=== PATIENT | female | born 1995 | race Caucasian/White ===

== ENCOUNTER 2019-11-19 12:13 | Observation (INO) | payer MEDICAID, OTHER ==
[~2019-11-19] VITALS: Ht 160 cm; Wt 65.0 kg
[~2019-11-19 12:13] MED LIST: CLON-568 PO; CLON0.1T2 PO; DICY10CA18 PO; ESCI20TA PO; NOR5T PO; ONDA4TAB6 PO; PANT40TA4 PO
[2019-11-19 13:32] LABS: BASOPHILS % (AUTO) 0.3 % (0-1); EOSINOPHILS % (AUTO) 0 % (0-6); HEMATOCRIT 44.6 % (35.0-45.0); HEMOGLOBIN 15.6 g/dl (12.0-16.0); LYMPHOCYTES # (AUTO) 1.6 X10'3 (1.1-4.8); LYMPHOCYTES % (AUTO) 13.1 % (21-51); MEAN CORPUSCULAR HGB CONC 34.9 g/dL (33.0-36.5); MEAN PLATELET VOLUME 7.6 FL (7.4-10.4); MONOCYTES # (AUTO) 0.6 X10'3 (0-0.9); MONOCYTES % (AUTO) 5.1 % (2-12); NEUTROPHILS # (AUTO) 10.1 X10'3 (1.8-7.7); NEUTROPHILS % (AUTO) 81.5 % (42-75); PLATELET COUNT 415 X10'3 (140-440); RED BLOOD COUNT 5.02 X10'6 (4.20-5.60); RED CELL DISTRIBUTION WIDTH 14.3 % (11.5-14.5); WHITE BLOOD COUNT 12.4 X10'3 (4.5-11.0)
--- NOTE | 2019-11-19 13:37 | NUR ---
DR. AVITIA IN ROOM AND AWARE OF BP OF 181/118
[2019-11-19] MEDS ORDERED: LORazepam 2 mg/ml vial IV ONE (13:40)
[2019-11-19] MEDS ORDERED: famotidine/PF 10 mg/ml inj IV ONE (13:40)
[2019-11-19] MEDS ORDERED: haloperidol lactate 5mg/ml inj IM ONE ×2 (13:40→14:30)
[2019-11-19] MEDS ORDERED: pantoprazole 40 MG vial IV ONE (13:40)
[2019-11-19] MEDS ORDERED: metoclopramide 5 mg/ml inj IV ONE (13:40)
[2019-11-19] MEDS ORDERED: ringers solution, lactated 1000ml IV soln IV ONE (13:40)
--- NOTE | 2019-11-19 13:40 | NUR ---
PT. INDUCING VOMITING BY PLACING FINGERS IN BACK OF THROAT
[2019-11-19 13:51] LABS: ALANINE AMINOTRANSFERASE 27 U/L (12-78); ALBUMIN 5.2 G/DL (3.4-5.0); ALBUMIN/GLOBULIN RATIO 1.2 (1.1-1.5); ALKALINE PHOSPHATASE 105 IU/L (46-116); ANION GAP 12 (8-16); ASPARTATE AMINO TRANSFERASE 13 U/L (10-37); BILIRUBIN,TOTAL 0.6 MG/DL (0.1-1.0); BLOOD UREA NITROGEN 10 MG/DL (7-18); BUN/CREATININE RATIO 10.1 (6.6-38.0); CALCIUM 9.9 MG/DL (8.5-10.1); CHLORIDE 97 MMOL/L (99-107); CREATININE 0.99 MG/DL (0.40-0.90); GLUCOSE 143 MG/DL (70-104); LIPASE 85 U/L (73-393); POTASSIUM 3.7 MMOL/L (3.5-5.1); SODIUM 136 MMOL/L (135-145); TOTAL CARBON DIOXIDE 27.5 MMOL/L (24-32); TOTAL PROTEIN 9.5 G/DL (6.4-8.2); eGFR 68 ML/MIN
[2019-11-19 13:58] LABS: CLARITY,URINE CLOUDY (Clear); COLOR,URINE YELLOW (Yellow); GLUCOSE, URINE NEGATIVE (Neg); KETONES,URINE 40 mg/dl (Neg); LEUKOCYTE ESTERASE ,URINE NEGATIVE (Neg); NITRITES, URINE NEGATIVE (Neg); OCCULT BLOOD,URINE NEGATIVE (Neg); PH,URINE 7.5 (4.8-8.0); PROTEIN,URINE 30 mg/dl (Neg); UROBILINOGEN,URINE 0.2 E.U/dL (0.2-1.0)
[2019-11-19 14:00] LABS: UA COLLECTION TYPE CLN CATCH MIDSTREAM; URINE HCG NEGATIVE (NEG)
[2019-11-19 14:07] LABS: BACTERIA,URINE 4+ /HPF (Neg); MUCUS STRANDS NONE SEEN /LPF (Neg); RBC,URINE NONE SEEN /HPF (0-2); SQUAMOUS EPITHELIAL CELL,UR MODERATE /LPF (FEW)
[2019-11-19] MEDS ORDERED: proCHLORperazine 10 MG/2 ml inj IV ONE (14:30)
[2019-11-19] MEDS ORDERED: ondansetron/PF 4mg/2ml inj IV PRN (15:05)
[2019-11-19] MEDS ORDERED: magnesium hydroxide 30ml (MOM) UD suspension PO PRN (15:05)
[2019-11-19] MEDS ORDERED: metoclopramide 5 mg/ml inj IV PRN (15:05)
[2019-11-19] MEDS ORDERED: mag hydrox/Alum hydrox/simeth 30ml oral suspension PO PRN (15:05)
[2019-11-19] MEDS ORDERED: acetaminophen 325mg tablet PO PRN (15:05)
--- NOTE | 2019-11-19 15:06 | NUR ---
iv started and all meds given. no c/o pain. no nausea
[2019-11-19 15:57] LABS: URINE AMPHETAMINE SCREEN NEGATIVE (Neg); URINE BARBITUATE SCREEN NEGATIVE (Neg); URINE BENZODIAZEPINES SCREEN POSITIVE (Neg); URINE CANNABINOID SCREEN POSITIVE (Neg); URINE COCAINE SCREEN NEGATIVE (Neg); URINE METHADONE SCREEN NEGATIVE (Neg); URINE OPIATE SCREEN NEGATIVE (Neg); URINE PHENCYCLIDINE SCREEN NEGATIVE (Neg)
[2019-11-19] MEDS: normal saline 1000ml 1,000 ML IV SCH (16:16)
--- NOTE | 2019-11-19 16:38 | NUR ---
RECEIVED REPORT FROM IVELISSE HALL IN ER
--- NOTE | 2019-11-19 17:00 | NUR ---
PT ARRIVED IN STABLE CONDITION. PT ORIENTED TO ROOM, CALL LIGHT IN REACH, BED LOW, LOCKED. PT HAS NS @ 100. 2 RN SKIN CHECK DONE. PT HAS REDNESS ON BACK AND RIGHT BUTTOCK. PT STATES SHE LAYED TOO CLOSE TO THE HEATER AND GOT BURNED. PICTURES TAKEN. PT STATES THAT SHE IS NAUSEOUS AND C/O ABD PAIN 08/17 PT HAS 22G R AC WITH NS @ NS @100. LUNGS CLEAR, HEART SOUNDS NORMAL. BOWEL SOUNDS HYPOACTIVE. RADIAL AND PEDAL PULSES PALPABLE.
[2019-11-19 17:07] VITALS: BP 176/102
--- NOTE | 2019-11-19 17:10 | NUR ---
PAGED DR FITCH PAGER ID: [phone] MESSAGE: [facility] [id number] MAGDALENA HORNER ARRIVED BP 176/102 C/O 08/17 PAIN
[2019-11-19] MEDS ORDERED: LORazepam 0.5 MG tablet PO PRN (17:25)
[2019-11-19] MEDS ORDERED: hydrALAZINE 20mg/ml inj. IV ONE (17:25)
[2019-11-19] MEDS ORDERED: dicyclomine 10 MG capsule PO PRN (17:40)
--- NOTE | 2019-11-19 18:14 | NUR ---
Problems reprioritized. Patient report given, questions answered & plan of care reviewed with IVELISSE CASSIDY.
--- NOTE | 2019-11-19 18:18 | NUR ---
Patient in room [facility]. I have received report from LILIAN STEARNS RN and had the opportunity to ask questions and assume patient care. Addendum: 11/19/19 at 1818 by Mansi Contreras RN Amended: Links added.
[2019-11-19 19:40] VITALS: BP 153/98
--- NOTE | 2019-11-19 19:40 | NUR ---
pt took meds tolerated ell iv flushed she was laying on it and kinked it.
[2019-11-19] MEDS: heparin, porcine 5000 units/ml vial SQ SCH (20:16)
[2019-11-19] MEDS: cloNIDine 0.1 mg tablet PO SCH (20:16)
--- NOTE | 2019-11-19 20:20 | NUR ---
pt swabbed and darted. pt mumbles very sleepily answers out.
--- NOTE | 2019-11-19 21:30 | NUR ---
pt resting on left side no s&s of distress at this time.
--- NOTE | 2019-11-19 22:49 | NUR ---
resting eyes closed without changes.
[2019-11-20] VITALS: BP 118/72
--- NOTE | 2019-11-20 00:13 | NUR ---
resting without changes.
--- NOTE | 2019-11-20 02:15 | NUR ---
pt resting without changes.
[2019-11-20] MEDS: normal saline 1000ml 1,000 ML IV SCH (02:27)
--- NOTE | 2019-11-20 03:45 | NUR ---
pt resting without changes.
--- NOTE | 2019-11-20 04:40 | NUR ---
pt resting eyes closed without changes at this time.
[2019-11-20 04:47] LABS: BASOPHILS % (AUTO) 0.3 % (0-1); EOSINOPHILS # (AUTO) 0.1 X10'3 (0-0.9); EOSINOPHILS % (AUTO) 0.6 % (0-6); HEMATOCRIT 37.1 % (35.0-45.0); LYMPHOCYTES # (AUTO) 4.3 X10'3 (1.1-4.8); LYMPHOCYTES % (AUTO) 39.2 % (21-51); MEAN CORPUSCULAR HEMOGLOBIN 31.3 PG (27.0-31.0); MEAN CORPUSCULAR HGB CONC 35.2 g/dL (33.0-36.5); MEAN CORPUSCULAR VOLUME 88.9 FL (78-98); MEAN PLATELET VOLUME 7.5 FL (7.4-10.4); MONOCYTES # (AUTO) 1.1 X10'3 (0-0.9); MONOCYTES % (AUTO) 9.7 % (2-12); NEUTROPHILS # (AUTO) 5.5 X10'3 (1.8-7.7); NEUTROPHILS % (AUTO) 50.2 % (42-75); PLATELET COUNT 345 X10'3 (140-440); RED BLOOD COUNT 4.17 X10'6 (4.20-5.60); RED CELL DISTRIBUTION WIDTH 14.2 % (11.5-14.5)
[2019-11-20 05:03] LABS: ALBUMIN 3.6 G/DL (3.4-5.0); ANION GAP 9 (8-16); BLOOD UREA NITROGEN 8 MG/DL (7-18); CALCIUM 8.5 MG/DL (8.5-10.1); CHLORIDE 103 MMOL/L (99-107); CREATININE 0.89 MG/DL (0.40-0.90); GLUCOSE 95 MG/DL (70-104); POTASSIUM 3.4 MMOL/L (3.5-5.1); SODIUM 139 MMOL/L (135-145); eGFR 77 ML/MIN
--- NOTE | 2019-11-20 05:27 | NUR ---
resting without change.
--- NOTE | 2019-11-20 06:42 | NUR ---
Problems reprioritized. Patient report given, questions answered & plan of care reviewed with JEFFREY OVIEDO. Addendum: 11/20/19 at 0643 by Mansi Contreras RN Amended: Links added.
--- NOTE | 2019-11-20 06:55 | NUR ---
Patient in room [facility]. I have received report from Mansi and had the opportunity to ask questions and assume patient care.
[2019-11-20 07:00] VITALS: BP 113/65
[2019-11-20] MEDS ORDERED: ONDA-103 PO (08:59)
[2019-11-20] MEDS ORDERED: AMLO5TAB16 (08:59)
[2019-11-20] MEDS: cloNIDine 0.1 mg tablet PO SCH (09:04)
[2019-11-20] MEDS: heparin, porcine 5000 units/ml vial SQ SCH (09:04)
[2019-11-20 11:00] VITALS: BP 100/63
[2019-11-20] MEDS ORDERED: potassium CL 10mEq/100ml bag 100 ML IV PRN (11:00)
[2019-11-20] MEDS ORDERED: PROM12.512 PO (13:04)
--- NOTE | 2019-11-20 15:23 | NUR ---
Patients diet advanced to regular, she ate and tolerated food well. Patient has been ambulating and is in good spirits. Potassium 3.4, replacement given. Pt. educated about drug and nicotine abstinence. Pt. offers no complaints. Vital signs stable. PIV removed. Pictures taken of wounds at time of discharge. Patient stated she will make an appointment with Dr. Amin tomorrow. Doctors note provided and patient plans to return to work tomorrow. Pt. left in stable condition.
== END 2019-11-20 15:20 | disposition home or self-care (01) ==
LOC: ER 12:13 → ED HOLD 15:01 → MERGE 15:01 → SUR 3N 16:40
PROVIDERS: ADMIT Family Medicine; ATTEND Family Medicine
DX: E86.0 Dehydration (principal); D72.829 Elevated white blood cell count, unspecified; I10 Essential (primary) hypertension; F41.9 Anxiety disorder, unspecified; F32.9 Major depressive disorder, single episode, unspecified; F12.10 Cannabis abuse, uncomplicated; I25.2 Old myocardial infarction; Z87.440 Personal history of urinary (tract) infections; Z90.49 Acquired absence of other specified parts of digestive tract; Z79.899 Other long term (current) drug therapy
CPT/HCPCS: 36415; 71045; 80048; 80053; 80305; 81001; 81025; 83690; 84484; 85025; 87077; 87081; 87088; 87186; 93005; 96361; 96372; 96374; 96375; 99284; C9113; G0378; J0360; J0780; J1630; J1644; J2060; J2405; J2765; J3480; J3490; J7030; J7120

== ENCOUNTER 2019-12-11 14:19 | Emergency (ER) | payer MEDICAID ==
[~2019-12-11] VITALS: Ht 160 cm; Wt 72.7 kg
[~2019-12-11 14:19] MED LIST changes: +AMLO5TAB16; -NOR5T PO; +ONDA-103 PO; -ONDA4TAB6 PO; -PANT40TA4 PO; +PROM12.512 PO
[2019-12-11] MEDS ORDERED: normal saline 1000ML IV soln IVB ONE (14:55)
[2019-12-11] MEDS ORDERED: LORazepam 2 mg/ml vial IV ONE ×2 (14:55→16:30)
[2019-12-11] MEDS ORDERED: ondansetron/PF 4mg/2ml inj IV ONE (14:55)
[2019-12-11 14:56] VITALS: BP 153/95
[2019-12-11 15:33] LABS: BASOPHILS % (AUTO) 0.2 % (0-1); EOSINOPHILS % (AUTO) 0 % (0-6); HEMATOCRIT 41.3 % (35.0-45.0); HEMOGLOBIN 14.4 g/dl (12.0-16.0); LYMPHOCYTES % (AUTO) 9.3 % (21-51); MEAN CORPUSCULAR HEMOGLOBIN 31.7 PG (27.0-31.0); MEAN CORPUSCULAR VOLUME 90.6 FL (78-98); MEAN PLATELET VOLUME 8.1 FL (7.4-10.4); MONOCYTES # (AUTO) 0.4 X10'3 (0-0.9); MONOCYTES % (AUTO) 3.6 % (2-12); NEUTROPHILS # (AUTO) 9.5 X10'3 (1.8-7.7); NEUTROPHILS % (AUTO) 86.9 % (42-75); PLATELET COUNT 368 X10'3 (140-440); RED BLOOD COUNT 4.56 X10'6 (4.20-5.60); RED CELL DISTRIBUTION WIDTH 13.8 % (11.5-14.5); WHITE BLOOD COUNT 10.9 X10'3 (4.5-11.0)
[2019-12-11 15:51] LABS: ALANINE AMINOTRANSFERASE 34 U/L (12-78); ALBUMIN 4.5 G/DL (3.4-5.0); ALKALINE PHOSPHATASE 103 IU/L (46-116); ANION GAP 9 (8-16); ASPARTATE AMINO TRANSFERASE 16 U/L (10-37); BILIRUBIN,TOTAL 0.4 MG/DL (0.1-1.0); BLOOD UREA NITROGEN 15 MG/DL (7-18); CALCIUM 9.7 MG/DL (8.5-10.1); CHLORIDE 104 MMOL/L (99-107); CREATININE 0.88 MG/DL (0.40-0.90); GLUCOSE 165 MG/DL (70-104); POTASSIUM 3.8 MMOL/L (3.5-5.1); SODIUM 140 MMOL/L (135-145); TOTAL CARBON DIOXIDE 27.3 MMOL/L (24-32); TOTAL PROTEIN 8.8 G/DL (6.4-8.2); eGFR 78 ML/MIN
[2019-12-11] MEDS ORDERED: proCHLORperazine 10 MG/2 ml inj IV ONE (16:30)
[2019-12-11] MEDS ORDERED: PROC25SU31 RC (16:41)
== END 2019-12-11 16:55 | disposition home or self-care (01) ==
LOC: ER 14:21
DX: R11.15 Cyclical vomiting syndrome unrelated to migraine (principal); F41.9 Anxiety disorder, unspecified; F31.9 Bipolar disorder, unspecified; F12.90 Cannabis use, unspecified, uncomplicated; Z79.899 Other long term (current) drug therapy
CPT/HCPCS: 36415; 80053; 85025; 93005; 96361; 96374; 96375; 96376; 99284; J0780; J2060; J2405; J7030

== ENCOUNTER 2019-12-23 10:15 | Emergency (ER) | payer MEDICAID, OTHER ==
[~2019-12-23] VITALS: Ht 160 cm; Wt 68.6 kg
[2019-12-23 10:31] VITALS: BP 107/59
--- NOTE | 2019-12-23 10:38 | NUR ---
pt states she took her clonidine this am and that she was hypotensive in triage, I rechecked vitals as charted
== END 2019-12-23 10:56 | disposition home or self-care (01) ==
LOC: ER 10:15
DX: R11.10 Vomiting, unspecified (principal); F41.9 Anxiety disorder, unspecified; F31.9 Bipolar disorder, unspecified; F12.90 Cannabis use, unspecified, uncomplicated; Z79.899 Other long term (current) drug therapy
CPT/HCPCS: 99281

== ENCOUNTER 2020-01-12 20:02 | Emergency (ER) | payer OTHER ==
[~2020-01-12] VITALS: Ht 160 cm; Wt 68.2 kg
[2020-01-12 20:15] VITALS: BP 98/44
[2020-01-12] MEDS ORDERED: CEPH500C5 PO (20:58)
== END 2020-01-12 21:17 | disposition home or self-care (01) ==
LOC: ER 20:02
DX: L03.116 Cellulitis of left lower limb (principal); L03.114 Cellulitis of left upper limb; F41.9 Anxiety disorder, unspecified; F31.9 Bipolar disorder, unspecified; F12.90 Cannabis use, unspecified, uncomplicated; Z79.899 Other long term (current) drug therapy
CPT/HCPCS: 99283

== ENCOUNTER 2020-01-14 22:21 | Emergency (ER) | payer OTHER ==
[~2020-01-14] VITALS: Ht 160 cm; Wt 68.2 kg
[~2020-01-14 22:21] MED LIST changes: +CEPH500C5 PO
[2020-01-14] MEDS ORDERED: SULF1TAB49 PO (23:00)
[2020-01-14] MEDS ORDERED: HYDR-3965 PO (23:01)
[2020-01-14] MEDS ORDERED: ONDA4TAB6 PO (23:01)
[2020-01-14] MEDS ORDERED: vancomycin/NS 1 GM ADD-VANTAGE 250 ML IV ONE (23:05)
[2020-01-14] MEDS ORDERED: CefTRIAXone 2gm/D5W 50ml 50 ML IV ONE (23:05)
[2020-01-14 23:08] LABS: BASOPHILS # (AUTO) 0.1 X10'3 (0-0.2); BASOPHILS % (AUTO) 0.7 % (0-1); EOSINOPHILS # (AUTO) 0.1 X10'3 (0-0.9); EOSINOPHILS % (AUTO) 0.7 % (0-6); HEMATOCRIT 34.8 % (35.0-45.0); LYMPHOCYTES # (AUTO) 2.6 X10'3 (1.1-4.8); LYMPHOCYTES % (AUTO) 20.9 % (21-51); MEAN CORPUSCULAR HGB CONC 34.4 g/dL (33.0-36.5); MEAN CORPUSCULAR VOLUME 90.1 FL (78-98); MEAN PLATELET VOLUME 7.1 FL (7.4-10.4); MONOCYTES # (AUTO) 1.1 X10'3 (0-0.9); MONOCYTES % (AUTO) 8.6 % (2-12); NEUTROPHILS # (AUTO) 8.5 X10'3 (1.8-7.7); NEUTROPHILS % (AUTO) 69.1 % (42-75); PLATELET COUNT 447 X10'3 (140-440); RED BLOOD COUNT 3.86 X10'6 (4.20-5.60); RED CELL DISTRIBUTION WIDTH 12.5 % (11.5-14.5); WHITE BLOOD COUNT 12.3 X10'3 (4.5-11.0)
[2020-01-14] MEDS ORDERED: ondansetron/PF 4mg/2ml inj IV ONE (23:10)
[2020-01-14] MEDS ORDERED: HYDROcodone/acetaminophen 10/325mg tab PO ONE (23:10)
[2020-01-14 23:25] LABS: ALANINE AMINOTRANSFERASE 27 U/L (12-78); ALBUMIN 3.4 G/DL (3.4-5.0); ALBUMIN/GLOBULIN RATIO 0.8 (1.1-1.5); ALKALINE PHOSPHATASE 95 IU/L (46-116); ANION GAP 8 (8-16); ASPARTATE AMINO TRANSFERASE 19 U/L (10-37); BILIRUBIN,TOTAL 0.3 MG/DL (0.1-1.0); BLOOD UREA NITROGEN 5 MG/DL (7-18); BUN/CREATININE RATIO 5.7 (6.6-38.0); CALCIUM 8.7 MG/DL (8.5-10.1); CHLORIDE 97 MMOL/L (99-107); CREATININE 0.87 MG/DL (0.40-0.90); GLUCOSE 87 MG/DL (70-104); POTASSIUM 4.2 MMOL/L (3.5-5.1); SODIUM 134 MMOL/L (135-145); TOTAL CARBON DIOXIDE 29.5 MMOL/L (24-32); TOTAL PROTEIN 7.8 G/DL (6.4-8.2); eGFR 79 ML/MIN
[2020-01-15 01:08] VITALS: BP 104/52
== END 2020-01-15 01:09 | disposition home or self-care (01) ==
LOC: ER 22:22
DX: L03.116 Cellulitis of left lower limb (principal); L02.416 Cutaneous abscess of left lower limb; L03.114 Cellulitis of left upper limb; F19.10 Other psychoactive substance abuse, uncomplicated; F41.9 Anxiety disorder, unspecified; F31.9 Bipolar disorder, unspecified; F12.90 Cannabis use, unspecified, uncomplicated; F15.90 Other stimulant use, unspecified, uncomplicated; Z79.2 Long term (current) use of antibiotics; Z79.899 Other long term (current) drug therapy
CPT/HCPCS: 36415; 80053; 83605; 84145; 85025; 87040; 96365; 96375; 99284; J0696; J2405; J3370

== ENCOUNTER 2020-01-16 06:11 | Emergency (ER) | payer OTHER ==
[~2020-01-16 06:11] MED LIST changes: +HYDR-3965 PO; +ONDA4TAB6 PO; +SULF1TAB49 PO
--- NOTE | 2020-01-16 06:23 | NUR ---
Patient stated to registration that she didn't want to wait and left before triage.
== END 2020-01-16 06:24 | disposition left against medical advice (07) ==
LOC: ER 06:12
DX: Z00.00 Encounter for general adult medical examination without abnormal findings (principal); Z53.21 Procedure and treatment not carried out due to patient leaving prior to being seen by health care provider

== ENCOUNTER 2020-05-14 15:57 | Emergency (ER) | payer MEDICAID ==
[~2020-05-14] VITALS: Ht 160 cm; Wt 72.7 kg
[~2020-05-14 15:57] MED LIST changes: -CEPH500C5 PO; -HYDR-3965 PO; -SULF1TAB49 PO
[2020-05-14 16:00] VITALS: BP 119/78
--- NOTE | 2020-05-14 16:14 | NUR ---
DEYA Mahan at bedside.
[2020-05-14] MEDS ORDERED: DICY10CA88 PO (16:18)
[2020-05-14] MEDS ORDERED: ONDA4TAB6 PO (16:18)
== END 2020-05-14 16:26 | disposition home or self-care (01) ==
LOC: ER 15:58
DX: R11.15 Cyclical vomiting syndrome unrelated to migraine (principal); F41.9 Anxiety disorder, unspecified; F31.9 Bipolar disorder, unspecified; F12.90 Cannabis use, unspecified, uncomplicated; F15.90 Other stimulant use, unspecified, uncomplicated; Z79.899 Other long term (current) drug therapy; Z76.0 Encounter for issue of repeat prescription
CPT/HCPCS: 99281

== ENCOUNTER 2020-06-06 20:41 | Emergency (ER) | payer MEDICAID, OTHER ==
[~2020-06-06] VITALS: Ht 160 cm; Wt 68.2 kg
[~2020-06-06 20:41] MED LIST changes: +DICY10CA88 PO
[2020-06-06 20:53] VITALS: BP 142/94
[2020-06-06 21:22] LABS: CLARITY,URINE CLEAR (Clear); COLOR,URINE YELLOW (Yellow); GLUCOSE, URINE NEGATIVE (Neg); KETONES,URINE NEGATIVE (Neg); LEUKOCYTE ESTERASE ,URINE NEGATIVE (Neg); NITRITES, URINE NEGATIVE (Neg); OCCULT BLOOD,URINE NEGATIVE (Neg); PH,URINE 6.5 (4.8-8.0); PROTEIN,URINE NEGATIVE (Neg); UROBILINOGEN,URINE 0.2 E.U/dL (0.2-1.0)
[2020-06-06 21:23] LABS: URINE HCG NEGATIVE (NEG)
[2020-06-06 21:27] LABS: UA COLLECTION TYPE CLN CATCH MIDSTREAM
--- NOTE | 2020-06-06 21:53 | NUR ---
pt is 24yo female c/o fatigue, +nausea, dizziness, x4 days, resting quietly on gurney,
[2020-06-06 22:28] LABS: BASOPHILS # (AUTO) 0.1 X10'3 (0-0.2); BASOPHILS % (AUTO) 0.8 % (0-1); EOSINOPHILS # (AUTO) 0.1 X10'3 (0-0.9); EOSINOPHILS % (AUTO) 0.7 % (0-6); HEMATOCRIT 37.8 % (35.0-45.0); HEMOGLOBIN 12.6 g/dl (12.0-16.0); LYMPHOCYTES # (AUTO) 2.6 X10'3 (1.1-4.8); LYMPHOCYTES % (AUTO) 30.8 % (21-51); MEAN CORPUSCULAR HEMOGLOBIN 28.7 PG (27.0-31.0); MEAN CORPUSCULAR HGB CONC 33.4 g/dL (33.0-36.5); MEAN CORPUSCULAR VOLUME 85.9 FL (78-98); MONOCYTES # (AUTO) 0.7 X10'3 (0-0.9); NEUTROPHILS % (AUTO) 59.7 % (42-75); PLATELET COUNT 382 X10'3 (140-440); RED CELL DISTRIBUTION WIDTH 14.3 % (11.5-14.5); WHITE BLOOD COUNT 8.5 X10'3 (4.5-11.0)
[2020-06-06 22:36] LABS: ALANINE AMINOTRANSFERASE 53 U/L (12-78); ALBUMIN 3.5 G/DL (3.4-5.0); ALBUMIN/GLOBULIN RATIO 0.8 (1.1-1.5); ALKALINE PHOSPHATASE 116 IU/L (46-116); ANION GAP 7 (8-16); ASPARTATE AMINO TRANSFERASE 22 U/L (10-37); BILIRUBIN,TOTAL 0.4 MG/DL (0.1-1.0); BLOOD UREA NITROGEN 8 MG/DL (7-18); BUN/CREATININE RATIO 10.1 (6.6-38.0); CALCIUM 9.1 MG/DL (8.5-10.1); CHLORIDE 99 MMOL/L (99-107); CREATININE 0.79 MG/DL (0.40-0.90); GLUCOSE 96 MG/DL (70-104); POTASSIUM 3.8 MMOL/L (3.5-5.1); SODIUM 135 MMOL/L (135-145); TOTAL CARBON DIOXIDE 28.8 MMOL/L (24-32); TOTAL PROTEIN 7.8 G/DL (6.4-8.2); eGFR 88 ML/MIN
== END 2020-06-06 23:06 | disposition home or self-care (01) ==
LOC: ER 20:43
DX: R30.0 Dysuria (principal); R53.83 Other fatigue; R10.30 Lower abdominal pain, unspecified; F41.9 Anxiety disorder, unspecified; F31.9 Bipolar disorder, unspecified; F12.90 Cannabis use, unspecified, uncomplicated; F15.90 Other stimulant use, unspecified, uncomplicated; Z79.899 Other long term (current) drug therapy
CPT/HCPCS: 36415; 80053; 81003; 81025; 85025; 99283

== ENCOUNTER 2020-08-09 21:03 | Emergency (ER) | payer MEDICAID, OTHER ==
[~2020-08-09] VITALS: Ht 160 cm; Wt 71.8 kg
[~2020-08-09 21:03] MED LIST changes: -DICY10CA88 PO
[2020-08-09] MEDS ORDERED: CEPH250T PO (23:10)
[2020-08-09 23:39] VITALS: BP 120/70
== END 2020-08-09 23:41 | disposition home or self-care (01) ==
LOC: ER 21:03
DX: L08.89 Other specified local infections of the skin and subcutaneous tissue (principal); R50.9 Fever, unspecified; R42 Dizziness and giddiness; R53.1 Weakness; R53.83 Other fatigue; F41.9 Anxiety disorder, unspecified; F31.9 Bipolar disorder, unspecified; F12.90 Cannabis use, unspecified, uncomplicated; F15.90 Other stimulant use, unspecified, uncomplicated; Z79.2 Long term (current) use of antibiotics; Z79.899 Other long term (current) drug therapy
CPT/HCPCS: 36415; 99283

== ENCOUNTER 2020-08-31 17:08 | Emergency (ER) | payer OTHER ==
[~2020-08-31] VITALS: Ht 160 cm; Wt 75.0 kg
[2020-08-31 17:20] VITALS: BP 130/77
[2020-08-31] MEDS ORDERED: acetaminophen 325mg tablet PO ONE (19:05)
[2020-08-31] MEDS ORDERED: dexamethasone sod phosphate 10mg/ml inj IM STA (19:10)
[2020-08-31] MEDS ORDERED: PRED20TA PO (19:50)
[2020-08-31] MEDS ORDERED: AMOX-422 PO (19:50)
== END 2020-08-31 20:31 | disposition home or self-care (01) ==
LOC: ER 17:10
DX: J02.0 Streptococcal pharyngitis (principal); R06.02 Shortness of breath; R05 Cough; R50.9 Fever, unspecified; F41.9 Anxiety disorder, unspecified; F31.9 Bipolar disorder, unspecified; F17.200 Nicotine dependence, unspecified, uncomplicated; F12.90 Cannabis use, unspecified, uncomplicated; F15.90 Other stimulant use, unspecified, uncomplicated; Z79.2 Long term (current) use of antibiotics; Z79.899 Other long term (current) drug therapy
CPT/HCPCS: 36415; 71045; 87502; 87503; 87635; 87880; 96372; 99284; J1100

== ENCOUNTER 2020-11-28 20:12 | Emergency (ER) | payer SELFPAY ==
[~2020-11-28] VITALS: Ht 160 cm; Wt 72.2 kg
--- NOTE | 2020-11-28 21:11 | NUR ---
Elver cotto in [facility] - 11/28/20 at 2116 by MATT SACHIN [email or web address]
[2020-11-28] MEDS ORDERED: dexamethasone sod phosphate 10mg/ml inj IV STA (21:13)
[2020-11-28] MEDS ORDERED: normal saline 1000ML IV soln IVB ONE (21:15)
[2020-11-28] MEDS ORDERED: diphenhydrAMINE 50 mg/ml inj IV ONE (21:15)
[2020-11-28] MEDS ORDERED: proCHLORperazine 10 MG/2 ml inj IV ONE (21:15)
[2020-11-28] MEDS ORDERED: ketorolac tromethamine 15mg/ml inj. IV ONE (21:15)
[2020-11-28] MEDS ORDERED: haloperidol lactate 5mg/ml inj IM ONE (21:45)
--- NOTE | 2020-11-28 22:14 | NUR ---
ATTEMPTED IV, SACHIN. WILL ATTEMPT ULTRASOUND
--- NOTE | 2020-11-28 22:20 | NUR ---
ULTRASOUND IV PLACED
[2020-11-28] MEDS ORDERED: ondansetron 4mg rapidly disintigrating tab PO ONE (23:25)
[2020-11-28] MEDS ORDERED: cloNIDine 0.1 mg tablet PO ONE (23:25)
[2020-11-28 23:45] LABS: BASOPHILS % (AUTO) 0.1 % (0-1); EOSINOPHILS % (AUTO) 0.1 % (0-6); HEMATOCRIT 39.4 % (35.0-45.0); HEMOGLOBIN 12.9 g/dl (12.0-16.0); LYMPHOCYTES # (AUTO) 0.4 X10'3 (1.1-4.8); LYMPHOCYTES % (AUTO) 3.3 % (21-51); MEAN CORPUSCULAR HEMOGLOBIN 27.7 PG (27.0-31.0); MEAN CORPUSCULAR HGB CONC 32.8 g/dL (33.0-36.5); MEAN CORPUSCULAR VOLUME 84.3 FL (78-98); MEAN PLATELET VOLUME 6.7 FL (7.4-10.4); MONOCYTES # (AUTO) 0.1 X10'3 (0-0.9); MONOCYTES % (AUTO) 0.7 % (2-12); NEUTROPHILS # (AUTO) 11.7 X10'3 (1.8-7.7); NEUTROPHILS % (AUTO) 95.8 % (42-75); PLATELET COUNT 334 X10'3 (140-440); RED BLOOD COUNT 4.68 X10'6 (4.20-5.60); RED CELL DISTRIBUTION WIDTH 14.3 % (11.5-14.5); WHITE BLOOD COUNT 12.2 X10'3 (4.5-11.0)
[2020-11-28 23:53] LABS: HCG SERUM QL NEGATIVE
[2020-11-29] LABS: ALANINE AMINOTRANSFERASE 44 U/L (12-78); ALBUMIN 3.8 G/DL (3.4-5.0); ALKALINE PHOSPHATASE 133 IU/L (46-116); ANION GAP 14 (8-16); ASPARTATE AMINO TRANSFERASE 77 U/L (10-37); BILIRUBIN,TOTAL 1.3 MG/DL (0.1-1.0); BLOOD UREA NITROGEN 26 MG/DL (7-18); CALCIUM 8.3 MG/DL (8.5-10.1); CHLORIDE 103 MMOL/L (99-107); CREATININE 1.53 MG/DL (0.40-0.90); GLUCOSE 105 MG/DL (70-104); SODIUM 140 MMOL/L (135-145); TOTAL CARBON DIOXIDE 23.2 MMOL/L (24-32); TOTAL PROTEIN 7.8 G/DL (6.4-8.2); eGFR 41 ML/MIN
[2020-11-29 00:03] LABS: POTASSIUM 2.9 MMOL/L (3.5-5.1)
[2020-11-29] MEDS ORDERED: DOXY-1 PO (00:03)
[2020-11-29] MEDS ORDERED: potassium chloride 10mEq ER tablet PO STA (00:08)
[2020-11-29] MEDS ORDERED: potassium Cl 10 mEq/100mL bag IV ONE (00:10)
[2020-11-29] MEDS ORDERED: normal saline 1000ML IV soln IVB ONE (00:10)
[2020-11-29] MEDS ORDERED: ONDA4TAB6 PO (00:21)
[2020-11-29 00:52] VITALS: BP 152/115
== END 2020-11-29 00:50 | disposition home or self-care (01) ==
LOC: ER 20:13
DX: G43.909 Migraine, unspecified, not intractable, without status migrainosus (principal); E87.6 Hypokalemia; R11.2 Nausea with vomiting, unspecified; R42 Dizziness and giddiness; F41.9 Anxiety disorder, unspecified; F31.9 Bipolar disorder, unspecified; F12.90 Cannabis use, unspecified, uncomplicated; F15.90 Other stimulant use, unspecified, uncomplicated; Z79.899 Other long term (current) drug therapy
CPT/HCPCS: 36415; 70450; 80053; 84703; 85025; 93005; 96361; 96372; 96374; 96375; 99285; J0780; J1100; J1200; J1630; J1885; J7030

== ENCOUNTER 2021-01-10 02:17 | Emergency (ER) | payer SELFPAY ==
[~2021-01-10] VITALS: Ht 154.9 cm; Wt 75.0 kg
[2021-01-10] MEDS ORDERED: TETanus/Pertussis (Acell)/Diphther VAC/PF (Tdap-Adult) 0.5ml syringe IMVAC ONE (02:30)
[2021-01-10] MEDS ORDERED: bacitracin 15gm ointment TP ONE (02:30)
[2021-01-10 02:35] VITALS: BP 183/103
--- NOTE | 2021-01-10 02:51 | NUR ---
pt has HTN. She states she took her medication as prescribed. Last dose clonidine 1999.
--- NOTE | 2021-01-10 02:54 | NUR ---
Dr Urbina made aware of the patient's bp and that she has been taking her meds as prescribed and he is ok with her being dc to police custody.
== END 2021-01-10 03:00 ==
LOC: ER 02:18
DX: S80.211A Abrasion, right knee, initial encounter (principal); M25.561 Pain in right knee; F41.9 Anxiety disorder, unspecified; F31.9 Bipolar disorder, unspecified; F12.90 Cannabis use, unspecified, uncomplicated; F15.90 Other stimulant use, unspecified, uncomplicated; Z04.1 Encounter for examination and observation following transport accident; Z20.3 Contact with and (suspected) exposure to rabies; Z79.899 Other long term (current) drug therapy; V87.7XXA Person injured in collision between other specified motor vehicles (traffic), initial encounter; Y93.89 Activity, other specified; Y92.89 Other specified places as the place of occurrence of the external cause; Y99.8 Other external cause status
CPT/HCPCS: 90471; 90715; 99283